=== PATIENT | female | born 1940 | race Two or more races ===

== ENCOUNTER 2023-11-03 17:43 | Inpatient (IN) | payer OTHER ==
[~2023-11-03] VITALS: Ht 154.9 cm; Wt 61.7 kg
[2023-11-03] MEDS ORDERED: CANDESARTAN CIL32 MG PO (17:51)
[2023-11-03] MEDS ORDERED: SYNTHROID50 MCG PO (17:51)
[2023-11-03] MEDS ORDERED: 0.9 % SODIUM CHLORIDE 1,000 ML IV SCH ×2 (18:00→21:00)
[2023-11-03 18:18] LABS: HEMATOCRIT 37.4 % (36.0-45.00); HEMOGLOBIN 12.3 g/dL (12.0-15.00); MEAN CELL VOLUME 82.1 fL (80.00-100.00); MEAN CORPUSCULAR HGB CONC 32.9 g/dl (32.0-36.0); PLATELET COUNT 259 K/uL (150-450); RED BLOOD COUNT 4.56 M/uL (4.00-6.00); RED CELL DISTRIBUTION WIDTH 13.6 % (11.5-14.5)
[2023-11-03 18:36] LABS: INR 0.99; PARTIAL THROMBOPLASTIN TIME 26.5 SECONDS (22.0-34.0); PROTHROMBIN TIME 10.4 SECONDS (9.0-11.5)
[2023-11-03 18:37] LABS: CALCIUM 8.9 mg/dL (8.5-10.1); CREATININE SERUM 0.71 mg/dL (0.55-1.02); GFR 79.01; POTASSIUM 3.74 mEq/L (3.5-5.1)
[2023-11-03 19:02] LABS: PH,URINE 5.5 (5.0-8.0); URINE APPEARANCE Clear; URINE BILIRRUBIN Negative (NEGATIVE); URINE BLOOD Small; URINE COLOR Yellow; URINE GLUCOSE Negative (NEGATIVE); URINE LEUKOCYTE Trace; URINE NITRATE Negative; URINE PROTEIN Negative (NEGATIVE); URINE UROBILINOGEN 0.2 E.U./dl
[2023-11-03 19:05] LABS: URINE BACTERIA 49.1 uL (0.0-1933); URINE EPITHELIAL CELLS 20.8 uL (0.0-38.8); URINE RBC 14.6 uL (0.0-20.8); URINE WBC 6.7 uL (0.0-23.2)
[2023-11-03] MEDS ORDERED: CEFAZOLIN SODIUM 1,000 MG VIAL IV ONE (21:00)
[2023-11-03] MEDS ORDERED: MEPERIDINE HCL/PF 50 MG/ML VIAL IM PRN (21:00)
[2023-11-03] MEDS ORDERED: PROMETHAZINE HCL 50 MG/ML AMPUL IM PRN (21:00)
[2023-11-03] MEDS ORDERED: LORazepam 2 MG/ML VIAL IM ONE (21:15)
[2023-11-03 22:30] LABS: CALCIUM 8.7 mg/dL (8.5-10.1); MAGNESIUM 2.1 mg/dL (1.8-2.4); PHOSPHOROUS 4.2 mg/dL (2.5-4.9)
[2023-11-04] MEDS ORDERED: OxyCODONE HCL/APAP UD (PERCOCET) PO PRN (07:45)
[2023-11-04] MEDS ORDERED: CEFAZOLIN SODIUM 1,000 MG VIAL IV ONE (07:45)
[2023-11-04] MEDS ORDERED: PROMETHAZINE HCL 50 MG/ML AMPUL IM PRN (07:45)
[2023-11-04] MEDS ORDERED: MEPERIDINE HCL/PF 50 MG/ML VIAL IM PRN (07:45)
[2023-11-04] MEDS ORDERED: 0.9 % SODIUM CHLORIDE 1,000 ML IV SCH (07:45)
[2023-11-04 10:36] LABS: HEMATOCRIT 32.6 % (36.0-45.00); MEAN CORPUSCULAR HEMOGLOBIN 27.7 pg (27.00-32.0); MEAN CORPUSCULAR HGB CONC 33.8 g/dl (32.0-36.0); PLATELET COUNT 226 K/uL (150-450); RED BLOOD COUNT 3.97 M/uL (4.00-6.00); RED CELL DISTRIBUTION WIDTH 13.8 % (11.5-14.5)
[2023-11-04 11:06] LABS: INR 1.02; PARTIAL THROMBOPLASTIN TIME 26.8 SECONDS (22.0-34.0); PROTHROMBIN TIME 10.7 SECONDS (9.0-11.5)
[2023-11-04 11:11] LABS: CALCIUM 8.6 mg/dL (8.5-10.1); MAGNESIUM 2.1 mg/dL (1.8-2.4); PHOSPHOROUS 3.1 mg/dL (2.5-4.9)
[2023-11-05] MEDS ORDERED: MORPHINE SULFATE 4 MG/ML CARTRIDGE IV PRN (17:30)
[2023-11-05] MEDS ORDERED: OxyCODONE HCL 5 MG TABLET (ROXICODONE) PO PRN (17:30)
[2023-11-05] MEDS ORDERED: SODIUM CHLORIDE 0.45 % 1,000 ML IV SCH (17:30)
[2023-11-05] MEDS ORDERED: ONDANSETRON HCL 2 MG/ML VIAL IV PRN (17:30)
[2023-11-05] MEDS ORDERED: ACETAMINOPHEN 500 MG GEL..CAP PO SCH (18:00)
[2023-11-05] MEDS ORDERED: CELECOXIB 200 MG CAPSULE PO SCH (21:00)
[2023-11-05 23:17] LABS: PH,URINE 5.5 (5.0-8.0); URINE APPEARANCE Clear; URINE BILIRRUBIN Negative (NEGATIVE); URINE BLOOD Small; URINE COLOR Yellow; URINE GLUCOSE Negative (NEGATIVE); URINE LEUKOCYTE Negative; URINE NITRATE Negative; URINE PROTEIN Negative (NEGATIVE)
[2023-11-05 23:21] LABS: URINE BACTERIA 47.8 uL (0.0-1933); URINE RBC 21.6 uL (0.0-20.8); URINE WBC 10.1 uL (0.0-23.2)
[2023-11-06] MEDS ORDERED: GABAPENTIN 300 MG CAPSULE PO SCH (01:00)
[2023-11-06] MEDS ORDERED: CEFAZOLIN SODIUM 1,000 MG VIAL IV SCH (01:00)
[2023-11-06 06:15] LABS: HEMATOCRIT 32.7 % (36.0-45.00); HEMOGLOBIN 10.9 g/dL (12.0-15.00); MEAN CELL VOLUME 82.4 fL (80.00-100.00); MEAN CORPUSCULAR HEMOGLOBIN 27.5 pg (27.00-32.0); MEAN CORPUSCULAR HGB CONC 33.3 g/dl (32.0-36.0); PLATELET COUNT 215 K/uL (150-450); RED BLOOD COUNT 3.97 M/uL (4.00-6.00); RED CELL DISTRIBUTION WIDTH 13.7 % (11.5-14.5)
[2023-11-06] MEDS ORDERED: DUI500 PO (07:41)
[2023-11-06] MEDS ORDERED: PERCOCET 5-3251 EACH PO (07:41)
[2023-11-06] MEDS ORDERED: ELIQUIS2.5 MG PO (07:41)
[2023-11-06] MEDS ORDERED: SENNOSIDES 1 TAB TABLET PO SCH (09:00)
[2023-11-06] MEDS ORDERED: VITAMIN B COMPLEX 1 EACH PO SCH (19:23)
[2023-11-06] MEDS ORDERED: SOD FERRIC GLUC COMPLX/SUCROSE 62.5 MG/5 ML AMPUL IV SCH (19:23)
[2023-11-06] MEDS ORDERED: Cyanocobalamin/Mecobalamin 1 TAB.SL SL SCH (19:24)
[2023-11-07 07:23] LABS: HEMATOCRIT 29.6 % (36.0-45.00); HEMOGLOBIN 9.8 g/dL (12.0-15.00); MEAN CELL VOLUME 84.1 fL (80.00-100.00); MEAN CORPUSCULAR HEMOGLOBIN 27.9 pg (27.00-32.0); MEAN CORPUSCULAR HGB CONC 33.1 g/dl (32.0-36.0); PLATELET COUNT 220 K/uL (150-450); RED BLOOD COUNT 3.52 M/uL (4.00-6.00); RED CELL DISTRIBUTION WIDTH 13.5 % (11.5-14.5)
[2023-11-07] MEDS ORDERED: IRON FUM,PS/FOLIC ACID/VITC/B3 1 CAP CAPSULE PO SCH (09:00)
== END 2023-11-07 18:32 | disposition home or self-care (01) | DRG 481 ==
LOC: ER 17:43 → SURH 22:26
PROVIDERS: Emergency Medicine; General Practice; ADMIT Orthopaedic Surgery; ATTEND Orthopaedic Surgery
PROC: 0QU60KZ Supplement Right Upper Femur with Nonautologous Tissue Substitute, Open Approach (ICD-10-PCS; 2023-11-05)
PROC: 0QS606Z Reposition Right Upper Femur with Intramedullary Internal Fixation Device, Open Approach (ICD-10-PCS; principal; 2023-11-05 18:15)
DX: S72.141A Displaced intertrochanteric fracture of right femur, initial encounter for closed fracture (principal); B19.10 Unspecified viral hepatitis B without hepatic coma; M80.051A Age-related osteoporosis with current pathological fracture, right femur, initial encounter for fracture; D62 Acute posthemorrhagic anemia; I10 Essential (primary) hypertension; E03.9 Hypothyroidism, unspecified; V09.20XA Pedestrian injured in traffic accident involving unspecified motor vehicles, initial encounter; Y93.9 Activity, unspecified; Y92.410 Unspecified street and highway as the place of occurrence of the external cause; Y99.9 Unspecified external cause status

== ENCOUNTER 2023-11-19 14:10 | Emergency (ER) | payer OTHER ==
[~2023-11-19] VITALS: Ht 154.9 cm; Wt 65.8 kg
[~2023-11-19 14:10] MED LIST: CANDESARTAN CIL32 MG PO; DUI500 PO; ELIQUIS2.5 MG PO; PERCOCET 5-3251 EACH PO; SYNTHROID50 MCG PO
== END 2023-11-19 18:22 | disposition home or self-care (01) ==
LOC: ER 14:10
DX: R20.0 Anesthesia of skin (principal); R50.9 Fever, unspecified; Z88.2 Allergy status to sulfonamides